=== PATIENT | female | born 1975 | race Caucasian/White ===

== ENCOUNTER → 2017-07-11 | Outpatient (CLI) | payer BC, OTHER ==
[~2017-07-11] MED LIST: ALBIPROI INH; ALBU90OI INH; AMOX500 PO; AMPDEX10; AZIT250 PO; AZIT500 PO; BUPR100ER PO; BUPR150T2; BUPR150T2 PO; CEFD300 PO; CEPH500 PO; CODGUAEL PO; CYCL10 PO; DOCU100 PO; DOXY100; DOXY100 PO; HYDACE10 PO; HYDACE10B PO; HYDACE5 PO; HYDGUAL120 PO; IBUP800 PO; KETO10 PO; LAMO100; LAMO100 PO; LORA1 PO; MINO100 PO; NAPR500 PO; OXYACE5T PO; OXYC5 PO; PENVK500 PO; PRED20 PO; PROM25 PO; PROM25S PR; RXCEPH500 PO; RXCYCL10 PO; RXOXYACE PO; RXSULTRIDS PO; SULTRIDS PO; TERC.4TC PV
== END ==
LOC: LAB SHORT 17:29 → LAB EV 17:29
DX: H60.91 Unspecified otitis externa, right ear (principal)
CPT/HCPCS: 87070; 87077; 87147; 87186; 87205

== ENCOUNTER → 2018-11-08 | Outpatient (CLI) | payer BC, OTHER ==
[2018-11-10 15:06] LABS: HPV 16 Negative (Negative); HPV 18 Negative (Negative); HPV OTHER HR TYPES Negative (Negative)
== END | disposition home or self-care (01) ==
LOC: LAB 19:06 → LAB SHORT 19:06
PROVIDERS: Nurse Practitioner Family
DX: Z12.4 Encounter for screening for malignant neoplasm of cervix (principal)
CPT/HCPCS: 87624; G0145